=== PATIENT | female | born 1940 | race Asian ===

== ENCOUNTER 2021-04-25 10:00 | Inpatient (IN) | payer MEDICARE, BC ==
[~2021-04-25] VITALS: Ht 152.4 cm; Wt 51.3 kg
[2021-04-25] MEDS ORDERED: PIPERACILLIN/TAZ 3.375G PREMIX 50 ML IV ONE (10:15)
[2021-04-25] MEDS ORDERED: DEXAMETHASONE 10 MG/ML VIAL IV ONE (10:15)
[2021-04-25] MEDS ORDERED: VANCOMYCIN 1 G PREMIX 200 ML IV SCH (10:15)
[2021-04-25] MEDS ORDERED: SODIUM CHLORIDE 0.9% 1,000 ML IV ONE ×2 (10:15→12:15)
[2021-04-25 10:35] LABS: BG BASE EXCESS -0.5 mmol/L (-2.0-2.0); BG CARBOXYHEMOGLOBIN 1.2 % (0.5-1.5); BG DEOXYHEMOGLOBIN 1.9 % (0.0-5.0); BG HCO3 ACT 25.8 mmol/L (22.0-26.0); BG METHEMOGLOBIN 0.2 % (0.0-1.5); BG OXYGEN SATURATION 98.1 % (92.0-98.5); BG OXYHEMOGLOBIN 96.7 % (94.0-97.0); BG PCO2 48.9 mmHg (35.0-45.0); BG PO2 111.4 mmHg (75.0-100.0); BG SAMPLE SITE RIGHT BRACHIAL; BG TOTAL HEMOGLOBIN 13.6 g/dL (12.0-18.0); BG VENT MODE NASAL CANNULA
[2021-04-25 10:39] LABS: HEMOGLOBIN. 13.1 g/dL (12.0-16.0); MEAN CORPUSCULAR HEMOGLOBIN 28.6 pg (28.0-32.0); MEAN CORPUSCULAR VOLUME 85.1 fL (81.0-99.0); MEAN PLATELET VOLUME 7.8 fl (7.4-10.4); PLATELET 263 x1000/uL (130-400); RED BLOOD CELL COUNT 4.58 mill/uL (4.2-5.4); RED CELL DISTRIBUTION WIDTH 14.7 % (11.6-14.6)
[2021-04-25 10:46] LABS: CHLORIDE 94 mEq/L (98-107)
[2021-04-25 10:52] LABS: ETHANOL BLOOD < 10 mg/dL
[2021-04-25 10:57] LABS: D-DIMER 26.3 mg/L FEU (<0.50); PROTHROMBIN TIME 11.2 sec (9.6-11.0)
[2021-04-25 11:06] LABS: CREATINE KINASE 1881 IU/L (26-192)
[2021-04-25 11:31] LABS: PLATELET ESTIMATE NORMAL
[2021-04-25] MEDS ORDERED: ALBUTEROL (0.083%) 2.5MG/3ML NEB HHN NR (14:04)
[2021-04-25] MEDS ORDERED: GUAIFENESIN 200MG/10ML SUGAR FREE UDC PO PRN (14:15)
[2021-04-25] MEDS ORDERED: ENOXAPARIN 40MG/0.4ML SYR SUBCUT SCH (14:15)
[2021-04-25] MEDS ORDERED: ONDANSETRON HCL 4MG/2ML INJ IV PRN (14:15)
[2021-04-25] MEDS ORDERED: LORAZEPAM 2MG/ML CPJ IV PRN (14:15)
[2021-04-25] MEDS ORDERED: CEFTRIAXONE 1 G PREMIX 50 ML IV NR (14:15)
[2021-04-25] MEDS ORDERED: ACETAMINOPHEN 325MG TABLET PO PRN (14:15)
[2021-04-25] MEDS ORDERED: ASPIRIN 81MG TABLET PO NR (14:15)
[2021-04-25] MEDS ORDERED: AZITHROMYCIN 500 MG in DEXT 5% WATER 250 ML IV SCH (14:30)
[2021-04-25] MEDS: DEXT 5%/0.45% NACL KCL 10MEQ/L 1,000 ML IV SCH (14:30)
[2021-04-25 15:20] LABS: CLARITY URINE CLEAR (CLEAR); COLOR URINE YELLOW (YELLOW); KETONES URINE 1+ (NEGATIVE); LEUKOCYTE ESTERASE URINE NEGATIVE (NEGATIVE); NITRITE URINE NEGATIVE (NEGATIVE); OCCULT BLOOD URINE 3+ (NEGATIVE); PH URINE 6.5 (4.5-8.0); PROTEIN URINE 1+ (NEGATIVE); SPECIFIC GRAVITY URINE 1.018 (1.005-1.030); UROBILINOGEN URINE 0.2 E.U./dL (0.2-1.0)
[2021-04-25 15:58] LABS: *AMPHETAMINES SCREEN URINE NEGATIVE (NEGATIVE); *BARBITURATES SCREEN URINE NEGATIVE (NEGATIVE); *BENZODIAZEPINES SCREEN URINE NEGATIVE (NEGATIVE); CANNABINOID URINE SCREEN NEGATIVE (NEGATIVE); PHENCYCLIDINE URINE SCREEN NEGATIVE (NEGATIVE)
[2021-04-25 15:59] LABS: *COCAINE SCREEN URINE NEGATIVE (NEGATIVE); METHADONE URINE SCREEN NEGATIVE (NEGATIVE); OPIATES URINE SCREEN NEGATIVE (NEGATIVE)
[2021-04-25] MEDS: ENOXAPARIN 30MG/0.3ML SYR SUBCUT SCH (16:06)
[2021-04-25] MEDS: DILTIAZEM HCL 5MG/ML 5ML VIAL IV PRN (19:21)
[2021-04-25 21:14] VITALS: BP 127/78
[2021-04-25] MEDS ORDERED: LORA2ORA5 PO (21:38)
[2021-04-25] MEDS ORDERED: ATEN-42 PO (21:38)
[2021-04-25 22:00] VITALS: BP 127/78
[2021-04-26] VITALS: BP_SYST 136
[2021-04-26 04:00] VITALS: BP 138/81
[2021-04-26] MEDS: DEXT 5%/0.45% NACL KCL 10MEQ/L 1,000 ML IV SCH ×2 (05:09→18:15)
[2021-04-26 07:15] LABS: HEMATOCRIT. 38.2 % (36.0-48.0); HEMOGLOBIN. 12.5 g/dL (12.0-16.0); MEAN CORPUSCULAR HEMOGLOBIN 28.2 pg (28.0-32.0); PLATELET 253 x1000/uL (130-400); RED BLOOD CELL COUNT 4.44 mill/uL (4.2-5.4); RED CELL DISTRIBUTION WIDTH 14.9 % (11.6-14.6)
[2021-04-26 07:35] LABS: CHLORIDE 99 mEq/L (98-107)
[2021-04-26 08:00] VITALS: BP 139/79
[2021-04-26] MEDS ORDERED: ADENOSINE 3 MG/ML 2ML VIAL IV NR (09:00)
[2021-04-26] MEDS: DILTIAZEM HCL 5MG/ML 5ML VIAL IV PRN ×2 (09:58→21:04)
[2021-04-26] MEDS ORDERED: ATENOLOL 25MG TABLET PO SCH (11:00)
[2021-04-26 12:00] VITALS: BP 132/82
[2021-04-26] MEDS ORDERED: CEFTRIAXONE 1,000 MG in DEXTROSE 5% WATER 50 ML IV SCH ×2 (12:00→16:00)
[2021-04-26] MEDS ORDERED: IOHEXOL-350 100 ML BOTTLE ONE (13:26)
[2021-04-26 14:05] LABS: PLATELET ESTIMATE NORMAL
[2021-04-26] MEDS: ENOXAPARIN 30MG/0.3ML SYR SUBCUT SCH (15:21)
[2021-04-26 16:00] VITALS: BP 151/91
[2021-04-26 16:17] LABS: HEMATOCRIT. 38.9 % (36.0-48.0); HEMOGLOBIN. 12.9 g/dL (12.0-16.0); MEAN CORPUSCULAR HEMOGLOBIN 28.4 pg (28.0-32.0); MEAN CORPUSCULAR VOLUME 85.6 fL (81.0-99.0); MEAN PLATELET VOLUME 8.3 fl (7.4-10.4); PLATELET 286 x1000/uL (130-400); RED BLOOD CELL COUNT 4.54 mill/uL (4.2-5.4); RED CELL DISTRIBUTION WIDTH 15.2 % (11.6-14.6)
[2021-04-26] MEDS: AZITHROMYCIN 500 MG in DEXT 5% WATER 250 ML IV SCH (16:32)
[2021-04-26 16:58] LABS: PLATELET ESTIMATE NORMAL
[2021-04-26 17:01] LABS: CHLORIDE 98 mEq/L (98-107)
[2021-04-26 17:23] LABS: CREATINE KINASE 1233 IU/L (26-192)
[2021-04-26] MEDS ORDERED: SODIUM CHLORIDE 10% FOR INH 15ML VIAL NEB INH SCH (17:30)
[2021-04-26] MEDS: PIPERACILLIN/TAZOBACTAM 3.375 G in DEXTROSE 5% WATER 50 ML IV SCH (18:18)
[2021-04-26 20:00] VITALS: BP 95/47
[2021-04-26] MEDS: IPRATROPIUM/ALBUTEROL 0.5-3(2.5)MG/3ML NEB HHN SCH (20:05)
[2021-04-26] MEDS ORDERED: SODIUM CHLORIDE 0.45% 250 ML IV ONE (21:15)
[2021-04-26] MEDS: ACETYLCYSTEINE 100MG/ML 10% VIAL 4ML INH SCH (22:01)
[2021-04-27] VITALS: BP 102/49
[2021-04-27] MEDS: IPRATROPIUM/ALBUTEROL 0.5-3(2.5)MG/3ML NEB HHN SCH ×4 (00:26→21:48)
[2021-04-27 04:00] VITALS: BP 141/83
[2021-04-27] MEDS: PIPERACILLIN/TAZOBACTAM 3.375 G in DEXTROSE 5% WATER 50 ML IV SCH ×3 (05:41→21:14)
[2021-04-27] MEDS: DEXT 5%/0.45% NACL KCL 10MEQ/L 1,000 ML IV SCH ×2 (05:53→19:50)
[2021-04-27 07:19] LABS: CHLORIDE 97 mEq/L (98-107)
[2021-04-27] MEDS ORDERED: VANCOMYCIN 750 MG PREMIX 150 ML IV SCH (08:00)
[2021-04-27 08:23] VITALS: BP 168/96
[2021-04-27] MEDS: ENOXAPARIN 60MG/0.6ML SYR SUBCUT SCH ×2 (08:48→21:14)
[2021-04-27] MEDS: DILTIAZEM HCL 5MG/ML 5ML VIAL IV PRN (08:50)
[2021-04-27] MEDS: ATENOLOL 50 MG TABLET PO SCH (09:00)
[2021-04-27] MEDS: ACETYLCYSTEINE 100MG/ML 10% VIAL 4ML INH SCH (09:18)
[2021-04-27 12:30] VITALS: BP 147/81
[2021-04-27] MEDS: AZITHROMYCIN 500 MG in DEXT 5% WATER 250 ML IV SCH (14:33)
[2021-04-27 16:05] VITALS: BP 140/79
[2021-04-27 20:00] VITALS: BP 109/60
[2021-04-28] VITALS: BP 130/71
[2021-04-28] MEDS ORDERED: VANCOMYCIN 750 MG PREMIX 150 ML IV SCH
[2021-04-28] MEDS: IPRATROPIUM/ALBUTEROL 0.5-3(2.5)MG/3ML NEB HHN SCH ×4 (03:05→21:24)
[2021-04-28 04:00] VITALS: BP 107/58
[2021-04-28] MEDS: PIPERACILLIN/TAZOBACTAM 3.375 G in DEXTROSE 5% WATER 50 ML IV SCH ×3 (05:34→21:25)
[2021-04-28 08:07] VITALS: BP 125/78
[2021-04-28] MEDS: ACETYLCYSTEINE 100MG/ML 10% VIAL 4ML INH SCH (09:00)
[2021-04-28] MEDS: ATENOLOL 50 MG TABLET PO SCH (09:00)
[2021-04-28] MEDS: ENOXAPARIN 60MG/0.6ML SYR SUBCUT SCH ×2 (09:56→21:25)
[2021-04-28] MEDS: DILTIAZEM HCL 5MG/ML 5ML VIAL IV PRN ×2 (11:27→23:04)
[2021-04-28 12:16] VITALS: BP 127/77
[2021-04-28] MEDS: AZITHROMYCIN 500 MG in DEXT 5% WATER 250 ML IV SCH (13:44)
[2021-04-28] MEDS: DEXT 5%/0.45% NACL KCL 10MEQ/L 1,000 ML IV SCH ×2 (15:20→21:08)
[2021-04-28 15:48] VITALS: BP 117/75
[2021-04-28] MEDS ORDERED: SODIUM CHLORIDE 10% FOR INH 15ML VIAL NEB INH NR (16:00)
[2021-04-28 20:36] VITALS: BP 151/75
[2021-04-29] VITALS: BP 137/77
[2021-04-29 04:03] VITALS: BP 170/92
[2021-04-29] MEDS: PIPERACILLIN/TAZOBACTAM 3.375 G in DEXTROSE 5% WATER 50 ML IV SCH ×3 (05:26→21:24)
[2021-04-29] MEDS: IPRATROPIUM/ALBUTEROL 0.5-3(2.5)MG/3ML NEB HHN SCH ×3 (06:00→21:23)
[2021-04-29 06:17] LABS: HEMATOCRIT. 41.4 % (36.0-48.0); HEMOGLOBIN. 13.4 g/dL (12.0-16.0); MEAN CORPUSCULAR HEMOGLOBIN 28.1 pg (28.0-32.0); MEAN CORPUSCULAR VOLUME 86.7 fL (81.0-99.0); MEAN PLATELET VOLUME 8.1 fl (7.4-10.4); PLATELET 243 x1000/uL (130-400); RED BLOOD CELL COUNT 4.78 mill/uL (4.2-5.4)
[2021-04-29 06:22] LABS: CHLORIDE 96 mEq/L (98-107)
[2021-04-29 06:45] LABS: CREATINE KINASE 311 IU/L (26-192)
[2021-04-29] MEDS ORDERED: HYDRALAZINE 20MG/ML VIAL IV PRN (07:00)
[2021-04-29 08:00] VITALS: BP 120/94
[2021-04-29] MEDS: ATENOLOL 50 MG TABLET PO SCH (09:00)
[2021-04-29] MEDS: ENOXAPARIN 60MG/0.6ML SYR SUBCUT SCH ×2 (10:24→21:23)
[2021-04-29] MEDS: DEXT 5%/0.45% NACL KCL 10MEQ/L 1,000 ML IV SCH ×2 (11:49→21:24)
[2021-04-29] MEDS: DILTIAZEM HCL 5MG/ML 5ML VIAL IV PRN (11:50)
[2021-04-29 12:00] VITALS: BP 124/65
[2021-04-29 12:31] LABS: PLATELET ESTIMATE NORMAL
[2021-04-29] MEDS ORDERED: [UNRECOGNIZED DRUG - REMARK] XX SCH (13:15)
[2021-04-29] MEDS: ETHAMBUTOL HCL 400MG TABLET PO SCH (14:00)
[2021-04-29] MEDS: PYRAZINAMIDE 500MG TABLET PO SCH (15:00)
[2021-04-29] MEDS: RIFAMPIN 150MG CAPSULE PO SCH (15:00)
[2021-04-29] MEDS ORDERED: ISONIAZID 100 MG TABLET PO SCH (15:00)
[2021-04-29] MEDS: PYRIDOXINE HCL 50MG TABLET PO SCH (15:00)
[2021-04-29] MEDS: ISONIAZID 300MG TABLET PO SCH (15:00)
[2021-04-29 16:00] VITALS: BP 104/60
[2021-04-29] MEDS: AZITHROMYCIN 500 MG in DEXT 5% WATER 250 ML IV SCH (16:30)
[2021-04-29] MEDS: ACETYLCYSTEINE 100MG/ML 10% VIAL 4ML INH SCH (17:00)
[2021-04-29 20:00] VITALS: BP 101/58
[2021-04-30] VITALS: BP 100/57
[2021-04-30] MEDS: IPRATROPIUM/ALBUTEROL 0.5-3(2.5)MG/3ML NEB HHN SCH ×4 (01:30→20:40)
[2021-04-30 04:00] VITALS: BP 117/67
[2021-04-30] MEDS: PIPERACILLIN/TAZOBACTAM 3.375 G in DEXTROSE 5% WATER 50 ML IV SCH ×3 (05:27→21:51)
[2021-04-30 08:00] VITALS: BP 129/81
[2021-04-30] MEDS: RIFAMPIN 150MG CAPSULE PO SCH (09:00)
[2021-04-30] MEDS: ETHAMBUTOL HCL 400MG TABLET PO SCH (09:00)
[2021-04-30] MEDS: PYRAZINAMIDE 500MG TABLET PO SCH (09:00)
[2021-04-30] MEDS: ATENOLOL 50 MG TABLET PO SCH (09:00)
[2021-04-30] MEDS: PYRIDOXINE HCL 50MG TABLET PO SCH (09:00)
[2021-04-30] MEDS: ISONIAZID 300MG TABLET PO SCH (09:00)
[2021-04-30] MEDS: ACETYLCYSTEINE 100MG/ML 10% VIAL 4ML INH SCH (09:18)
[2021-04-30] MEDS: ENOXAPARIN 60MG/0.6ML SYR SUBCUT SCH ×2 (09:41→21:43)
[2021-04-30] MEDS: DEXT 5%/0.45% NACL KCL 10MEQ/L 1,000 ML IV SCH ×2 (10:20→23:55)
[2021-04-30 11:06] VITALS: BP 109/68
[2021-04-30 16:00] VITALS: BP 107/64
[2021-04-30 20:00] VITALS: BP 106/55
[2021-05-01] VITALS: BP 99/56
[2021-05-01] MEDS: IPRATROPIUM/ALBUTEROL 0.5-3(2.5)MG/3ML NEB HHN SCH (01:35)
[2021-05-01] MEDS: ACETYLCYSTEINE 100MG/ML 10% VIAL 4ML INH SCH (01:35)
[2021-05-01 04:00] VITALS: BP 100/58
[2021-05-01] MEDS: PIPERACILLIN/TAZOBACTAM 3.375 G in DEXTROSE 5% WATER 50 ML IV SCH (06:03)
[2021-05-01 06:06] LABS: QFT MITOGEN VALUE 0.23 IU/mL (.); QFT TB GOLD PLUS Indeterminate (Negative); QFT TB1 AG VALUE 0.04 IU/mL (.)
[2021-05-01 08:15] VITALS: BP 112/57
[2021-05-01] MEDS: ENOXAPARIN 60MG/0.6ML SYR SUBCUT SCH (08:58)
[2021-05-01] MEDS: PYRIDOXINE HCL 50MG TABLET PO SCH (08:58)
[2021-05-01] MEDS: RIFAMPIN 150MG CAPSULE PO SCH (08:59)
[2021-05-01] MEDS: ATENOLOL 50 MG TABLET PO SCH (08:59)
[2021-05-01] MEDS: PYRAZINAMIDE 500MG TABLET PO SCH (08:59)
[2021-05-01] MEDS: ETHAMBUTOL HCL 400MG TABLET PO SCH (08:59)
[2021-05-01] MEDS: ISONIAZID 300MG TABLET PO SCH (08:59)
[2021-05-01] MEDS: DILTIAZEM HCL 5MG/ML 5ML VIAL IV PRN (09:50)
[2021-05-01] MEDS ORDERED: MORPHINE SULFATE 4 MG/ML CPJ (NOT FOR IM USE) IV PRN (11:15)
[2021-05-01] MEDS ORDERED: NALOXONE HCL 0.4MG/ML VIAL IV PRN ×2 (11:30→17:15)
[2021-05-01 12:05] VITALS: BP 114/69
[2021-05-01] MEDS: DEXT 5%/0.45% NACL KCL 10MEQ/L 1,000 ML IV SCH (12:27)
[2021-05-01] MEDS ORDERED: MORPHINE SULFATE 250 MG in DEXT 5% WATER 225 ML IV PRN (13:00)
[2021-05-01 16:57] VITALS: BP 105/46
[2021-05-01 20:00] VITALS: BP 80/28
[2021-05-02 00:30] VITALS: BP 61/25
[2021-05-02 04:00] VITALS: BP 59/25
[2021-05-02 08:04] VITALS: BP 56/30
[2021-05-02 12:25] VITALS: BP 52/26
[2021-05-02 15:52] VITALS: BP 50/24
== END 2021-05-02 18:18 | DRG 871 ==
LOC: ER 10:13 → MICUSO 14:02 → EDBEDREQ 14:04 → EDBEDREQSVC 14:04 → 6WST 17:37
PROVIDERS: ADMIT Hospitalist; ATTEND Hospitalist
DX: A41.9 Sepsis, unspecified organism (principal); E43 Unspecified severe protein-calorie malnutrition; G93.41 Metabolic encephalopathy; J96.01 Acute respiratory failure with hypoxia; J18.9 Pneumonia, unspecified organism; I26.99 Other pulmonary embolism without acute cor pulmonale; I50.31 Acute diastolic (congestive) heart failure; E87.1 Hypo-osmolality and hyponatremia; M62.82 Rhabdomyolysis; J44.0 Chronic obstructive pulmonary disease with (acute) lower respiratory infection; A15.0 Tuberculosis of lung; E87.6 Hypokalemia; F02.80 Dementia in other diseases classified elsewhere, unspecified severity, without behavioral disturbance, psychotic disturbance, mood disturbance, and anxiety; I11.0 Hypertensive heart disease with heart failure; Z20.822 Contact with and (suspected) exposure to COVID-19; G30.9 Alzheimer's disease, unspecified; Z66 Do not resuscitate; I27.20 Pulmonary hypertension, unspecified; M85.80 Other specified disorders of bone density and structure, unspecified site; R13.10 Dysphagia, unspecified; R33.9 Retention of urine, unspecified; Z51.5 Encounter for palliative care; I48.91 Unspecified atrial fibrillation; R65.20 Severe sepsis without septic shock; Z86.73 Personal history of transient ischemic attack (TIA), and cerebral infarction without residual deficits; Z82.49 Family history of ischemic heart disease and other diseases of the circulatory system; Z68.22 Body mass index [BMI] 22.0-22.9, adult
CPT/HCPCS: 36415; 36600; 71045; 71275; 76700; 80048; 80053; 80076; 80202; 80305; 80320; 81003; 82375; 82550; 82728; 82805; 82962; 83605; 83615; 83880; 84145; 84443; 84484; 85025; 85379; 85384; 86140; 86480; 86635; 86698; 86850; 86900; 87070; 87116; 87899; 92610; 93005; 93306; 93970; 94640; 99291; C1893; C9803; J0153; J0360; J0456; J0696; J1100; J1650; J2270; J2543; J3370; J3490; J7030; J7060; J7131; J7608; Q9967; U0003; U0005; A4315; G0480